=== PATIENT | male | born 1980 | race Caucasian/White ===

== ENCOUNTER 2021-10-09 15:44 | Inpatient (IN) | payer SELFPAY ==
[2021-10-09 15:47] VITALS: BMI 34.2
[2021-10-09 15:51] VITALS: BP 153/99; PULSE 95; RESP 18; TEMP 36.9; O2SAT 96
[2021-10-09] MEDS: nicotine 21 mg Patch 1 PATCH TRANSDERMA (16:16)
[2021-10-09] MEDS: hyDROXYzine 25 mg Capsule 50 MG PO (16:16)
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
[2021-10-09] MEDS: OLANZapine 5 mg ODT PO (17:26)
--- NOTE | 2021-10-09 17:26 | PC.NURSE ---
PRN ZYPREXA ZYDIS 5 MG GIVEN PO PER PT C/O AGITATION/FURTHER ANXIETY. VOICED NOT MUCH RELIEF FROM PRN VISTARIL GIVEN PREVIOUSLY
[2021-10-09 20:01] VITALS: BP 147/105; PULSE 92; RESP 18; TEMP 36.6; O2SAT 97
[2021-10-10 06:00] VITALS: BP 148/98; PULSE 75; RESP 17; TEMP 37.1; O2SAT 97
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
[2021-10-10] MEDS: OLANZapine 5 mg ODT PO (09:18)
[2021-10-10] MEDS: folic acid 1 mg Tablet PO (09:29)
[2021-10-10] MEDS: thiamine 100 mg Tablet PO (09:29)
[2021-10-10] MEDS: multivitamin therapeutic Tablet 1 TAB PO (09:29)
[2021-10-10] MEDS: fluoxetine 20 mg Capsule PO (09:29)
[2021-10-10] MEDS: lisinopril 20 mg Tablet PO (09:29)
[2021-10-10] MEDS: pantoprazole DR 40 mg Tablet PO (09:30)
[2021-10-10] MEDS: nicotine 4 mg lozenge MUCOUS MEM (11:55)
[2021-10-10 13:31] VITALS: BP 140/86; PULSE 118; RESP 17; TEMP 36.6; O2SAT 95
[2021-10-10] MEDS: nicotine 2 mg Gum BUCCAL (15:03)
--- NOTE | 2021-10-10 16:03 | PC.NURSE ---
assessed pt pain at 1530, pt reported 8 out of 10 pain in the left knee, pt stated that this is their normal and would not like pain medication.
[2021-10-10] MEDS: calcium carbonate 500 mg Chew Tablet 1000 MG PO (18:36)
[2021-10-10 20:28] VITALS: BP 128/87; PULSE 85; RESP 17; TEMP 36.7; O2SAT 95
[2021-10-10] MEDS: trazodone 50 mg Tablet PO (20:40)
[2021-10-11 06:00] VITALS: BP 132/96; PULSE 100; RESP 18; TEMP 36.9; O2SAT 98
[2021-10-11] MEDS: pantoprazole DR 40 mg Tablet PO (06:12)
[2021-10-11] MEDS: thiamine 100 mg Tablet PO (08:31)
[2021-10-11] MEDS: folic acid 1 mg Tablet PO (08:31)
[2021-10-11] MEDS: fluoxetine 20 mg Capsule PO (08:31)
[2021-10-11] MEDS: multivitamin therapeutic Tablet 1 TAB PO (08:31)
[2021-10-11] MEDS: lisinopril 20 mg Tablet PO (08:31)
[2021-10-11 14:00] VITALS: BP 133/74; PULSE 117; RESP 18; O2SAT 97
--- NOTE | 2021-10-11 14:43 | W.PM.NPUPNS ---
Subjective NPU Subjective: Patient resents today reporting that he is doing better and feels like he is getting what he came here to get. He reports his medication is effective. He is very tearful about some of the choices that he has made that have created difficulty in his relationship with his significant other. He reported feeling very driven to make things right and to treat positive changes. He has more optimism and less concerned about safety. We discussed the possibility of discharge tomorrow. Mental Status Exam MSE Comments: This is an obese white male with adequate dress, grooming and eye contact in hospital scrubs. No abnormal movements except for mild psychomotor retardation Cooperative with exam in mild distress. Speech was slightly decreased rate and volume. Mood described as a little better, affect pensive and tearful. Thought process organized, thought content: patient denies suicidal or homicidal ideation, there were no delusions reported or noted, he denied any auditory or visual hallucinations. Attention and concentration were intact and memory appeared reliable but none were formally tested. He?s alert and oriented times three. Insight and judgment appeared fair and impulse control appeared fair Vitals/I&O/Wt Last Vital Signs Temp 98.5 F 10/11/21 06:00 Pulse 117 H 10/11/21 14:00 Resp 18 10/11/21 14:00 BP 133/74 10/11/21 14:00 Pulse Ox 97 10/11/21 14:00 Weight last 48 hrs Weight 117.934 kg A&P Assessment and plan (1) PTSD (post-traumatic stress disorder): Status: Acute (2) Suicidal ideation: Status: Acute (3) Anxiety: Status: Acute (4) Major depressive disorder: Status: Acute Plan This is a 41-year-old male with relationship problems because of pornography addiction, PTSD and depression with recent suicidal ideation Plan: 1.? We will started lisinopril, Protonix and Prozac. 2.? Continue every 15 minute checks for safety. 3.? Encourage individual, group and milieu therapies. 4.? Encourage sober living treatment after discharge at the highest level of care to which he is willing to commit. 5.? We will work with treatment team to identify a safe discharge plan. Involuntary Hold Information 96 Hour Hold: 96 Hour Involuntary Admission: No Attestations NPU Medical Necessity Statement*: Inpatient hospitalization is medically necessary and the clinically appropriate intervention at this time.? We will initiate medications and make changes as indicated.? Likely length of stay 1-3 days Coding Level of Care Code Acute Permastone Mechanic for Chg Fwd Diagnoses PTSD (post-traumatic stress disorder) F43.10 Suicidal ideation R45.851 Anxiety F41.9 Major depressive disorder F32.9
[2021-10-11] MEDS: nicotine 21 mg Patch 1 PATCH TRANSDERMA (17:08)
[2021-10-11] MEDS: calcium carbonate 500 mg Chew Tablet 1000 MG PO (20:05)
[2021-10-11] MEDS: trazodone 50 mg Tablet PO (20:05)
[2021-10-11 21:10] VITALS: BP 117/70; PULSE 76; RESP 18; TEMP 36.5; O2SAT 92
--- NOTE | 2021-10-11 21:40 | PC.NURSE ---
PT REQUESTED TRAZADONE TO HELP HIM SLEEP. TRAZADONE GIVEN BY THIS NURSE.
[2021-10-12 06:00] VITALS: BP 143/86; PULSE 77; RESP 17; TEMP 36.6; O2SAT 97
[2021-10-12] MEDS: pantoprazole DR 40 mg Tablet PO (06:27)
[2021-10-12] MEDS: fluoxetine 20 mg Capsule PO (09:11)
[2021-10-12] MEDS: lisinopril 20 mg Tablet PO (09:11)
[2021-10-12] MEDS: multivitamin therapeutic Tablet 1 TAB PO (09:11)
[2021-10-12] MEDS: thiamine 100 mg Tablet PO (09:11)
[2021-10-12] MEDS: folic acid 1 mg Tablet PO (09:12)
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
[2021-10-12 11:50] VITALS: BP 143/86; PULSE 77; RESP 17; TEMP 36.6; O2SAT 97
[2021-10-12 14:00] VITALS: BP 143/86; PULSE 77; RESP 17; TEMP 36.6; O2SAT 97
== END 2021-10-12 14:25 | disposition home or self-care (01) | DRG 881 ==
PROVIDERS: Admitting Provider Psychiatry & Neurology Psychiatry; Visit Provider Psychiatry & Neurology Psychiatry
DX: F32.9 Major depressive disorder, single episode, unspecified (principal); R45.851 Suicidal ideations; Z63.0 Problems in relationship with spouse or partner; F41.9 Anxiety disorder, unspecified; F43.10 Post-traumatic stress disorder, unspecified
CPT/HCPCS: 97150; 97165